=== PATIENT | female | born 1930 | race Caucasian/White ===

== ENCOUNTER 2017-12-17 08:15 | Day surgery (SDC) | payer OTHER ==
[2017-12-17] MEDS: LR 1,000 ML IV (08:25)
[2017-12-17] MEDS ORDERED: fentaNYL 100 MCG/2 ML INJECTION (J3010) As Ordered ×2 (10:12→11:54)
[2017-12-17] MEDS ORDERED: ROCURONIUM BROMIDE 50 MG/5 ML VIAL As Ordered ×2 (10:12→10:44)
[2017-12-17] MEDS ORDERED: MIDAZOLAM INJ 2 MG/2 ML VIAL (J2250) As Ordered ×2 (10:12→10:45)
[2017-12-17] MEDS ORDERED: PROPOFOL 200 MG/20 ML VIAL As Ordered ×2 (10:12→10:44)
[2017-12-17] MEDS ORDERED: LIDOCAINE 2% INJ 100 MG/5 ML SDV (FOR ANES.) As Ordered (10:12)
[2017-12-17] MEDS: LIDOCAINE W/EPINEPHRINE 1% 20ML VIAL As Ordered (10:43)
[2017-12-17] MEDS ORDERED: ePHEDrine INJ 50 MG/ML VIAL As Ordered (11:01)
[2017-12-17] MEDS ORDERED: PHENYLephrine HCL 500 MCG/5 ML (100MCG/ML) SYRINGE (J2370) As Ordered (11:05)
[2017-12-17] MEDS ORDERED: ONDANSETRON 4MG/2ML VIAL (J2405) As Ordered ×2 (11:14→19:59)
[2017-12-17] MEDS ORDERED: GLYCOPYRROLATE INJ 0.2 MG/ML 2 ML VIAL As Ordered (11:14)
[2017-12-17] MEDS ORDERED: NEOSTIGMINE 10 MG/10 ML VIAL (J2710) As Ordered (11:14)
[2017-12-17] MEDS ORDERED: fentaNYL 100 MCG/2 ML INJECTION (J3010) IV (13:15)
[2017-12-17] MEDS: ONDANSETRON 4MG/2ML VIAL (J2405) IV ×2 (14:45→20:15)
[2017-12-17] MEDS ORDERED: METOCLOPRAMIDE INJ 10MG/2ML VIAL (J2765) As Ordered (15:17)
[2017-12-17] MEDS ORDERED: METOCLOPRAMIDE INJ 10MG/2ML VIAL (J2765) IV (15:20)
[2017-12-17] MEDS: METOCLOPRAMIDE INJ 10MG/2ML VIAL (J2765) IV (15:28)
[2017-12-17] MEDS ORDERED: PROMETHAZINE INJ 25 MG/ML VIAL (J2550) As Ordered (16:37)
[2017-12-17] MEDS: PROMETHAZINE INJ 25 MG/ML VIAL (J2550) IV (16:56)
[2017-12-17] MEDS: LOSARTAN 50 MG TAB PO (17:17)
[2017-12-17] MEDS ORDERED: ACETAMINOPHEN 325 MG TAB As Ordered (20:00)
[2017-12-17] MEDS: ACETAMINOPHEN TAB 650MG DOSE (2X325MG) PO (20:27)
[2017-12-17] MEDS ORDERED: ONDANSETRON 4MG/2ML VIAL (J2405) IV (21:00)
[2017-12-17] MEDS: LEVOTHYROXINE 25MCG TABLET (0.025MG) PO (21:36)
[2017-12-17] MEDS: cloNIDine 0.1 MG TAB PO (21:37)
[2017-12-18] MEDS: LEVOTHYROXINE 25MCG TABLET (0.025MG) PO (06:08)
[2017-12-18] MEDS: LR 1,000 ML IV ×3 (09:00→09:30)
[2017-12-18] MEDS: LOSARTAN 50 MG TAB PO (09:33)
[2017-12-18] MEDS: cloNIDine 0.1 MG TAB PO (09:33)
[2017-12-18] MEDS: traMADol 50 MG TAB PO (09:38)
== END 2017-12-18 14:55 | disposition home or self-care (01) ==
LOC: M SDC 08:15 → M MS4PR 23:17
DX: C44.329 Squamous cell carcinoma of skin of other parts of face (principal); C44.629 Squamous cell carcinoma of skin of left upper limb, including shoulder; E07.9 Disorder of thyroid, unspecified; I10 Essential (primary) hypertension; Z88.2 Allergy status to sulfonamides; Z79.899 Other long term (current) drug therapy; Z79.82 Long term (current) use of aspirin; Z85.3 Personal history of malignant neoplasm of breast; Z96.1 Presence of intraocular lens; Z90.710 Acquired absence of both cervix and uterus
CPT/HCPCS: 14041